=== PATIENT | male | born 2000 | race African-American/Black ===

== ENCOUNTER 2023-09-06 21:37 | Emergency (ER) | payer OTHER, SELFPAY ==
[2023-09-06 21:53] VITALS: BP 152/76; PULSE 100; RESP 15; TEMP 36.6; O2SAT 100
--- NOTE | 2023-09-07 00:23 | ED.GENADULT ---
[facility] - General Adult General Chief complaint: Extremity Problem,Nontraumatic Stated complaint: right ankle pain for years Time Seen by Provider: 09/07/23 00:05 Source: patient Mode of arrival: ambulatory Limitations: no limitations History of Present Illness HPI narrative: This is a 22-year-old male who presents to the ED with chief complaint of 3 years of chronic posterior ankle pain. Reports the pain radiates from the back of the heel up into the posterior ankle. Reports worse with standing and walking otherwise does not give him a lot of pain. Denies skin changes, bruising or any injury. Has taken Tylenol but recently ran out of Tylenol at home. Denies numbness, weakn Related Data Allergies Allergy/AdvReac Type Severity Reaction Status Date / Time No Known Allergies Allergy Unknown Verified 09/06/23 23:00 Review of Systems Review of Systems: All systems as dictated in [facility] Past Medical History Medical History (Updated 09/07/23 @ 00:25 by Scott Rucker PA-C) ADD (attention deficit disorder) Fracture of right upper limb High-functioning autism spectrum disorder Male circumcision Social History Social History (Updated 05/23/19 @ 08:55 by Carmina Webb NP) Smoking status: Never smoker Living arrangements: with family Gender identity (if verbalized by the patient): Male Exam Narrative: GENERAL: Well-appearing, well-nourished, and in no acute distress. MSK: Normal range of motion. No edema. Mild tenderness to the right heel /ankle. No deformity. Compartments soft. Neurovascularly intact distally. SKIN: Warm, dry, no rash. NEURO: Alert and oriented x3. No focal deficits. PSYCH: Normal mood and affect. Course Vital Signs Vital signs: Vital Signs Temperature 97.8 F 09/06/23 21:53 Pulse Rate 100 09/06/23 21:53 Respiratory Rate 15 09/06/23 21:53 Blood Pressure 152/76 H 09/06/23 21:53 Pulse Oximetry 100 09/06/23 21:53 Oxygen Delivery Room Air 09/06/23 21:53 Temperature 97.8 F 09/06/23 21:53 Pulse Rate 88 09/07/23 01:00 Respiratory Rate 14 09/07/23 01:00 Blood Pressure 142/88 H 09/07/23 01:00 Pulse Oximetry 100 09/07/23 01:00 Oxygen Delivery Room Air 09/06/23 21:53 Medical Decision Making MDM Narrative Medical decision making narrative: this is a 22-year-old male who presents to the ED with chief complaint of several years of right ankle pain. Vitals are normal. Exam shows tenderness to the heel and posterior ankle. Presentation is most likely consistent with plantar fasciitis. No indication for imaging or further workup at this time. Pt will be discharged in stable condition. Return precautions given and supportive measures discussed. Pt is understanding and agreeable with plan for discharge and follow-up with PCP. Vital Signs Vital Signs: Vital Signs Temperature 97.8 F 09/06/23 21:53 Pulse Rate 100 09/06/23 21:53 Respiratory Rate 15 09/06/23 21:53 Blood Pressure 152/76 H 09/06/23 21:53 Pulse Oximetry 100 09/06/23 21:53 Oxygen Delivery Room Air 09/06/23 21:53 Temperature 97.8 F 09/06/23 21:53 Pulse Rate 88 09/07/23 01:00 Respiratory Rate 14 09/07/23 01:00 Blood Pressure 142/88 H 09/07/23 01:00 Pulse Oximetry 100 09/07/23 01:00 Oxygen Delivery Room Air 09/06/23 21:53 Discharge Plan Discharge Clinical Impression: Plantar fasciitis Patient Disposition: Home, Self-Care Condition: Stable Instructions: Antibiotic Form Additional Instructions: exam today is overall reassuring. Follow-up with your doctor. Take Tylenol and ibuprofen regularly for pain control. Prescriptions: New acetaminophen [Pain Relief (acetaminophen)] 325 mg tablet 325 mg PO Q6H PRN (Reason: fever or pain) Qty: 30 0RF ibuprofen 600 mg tablet 600 mg PO TID PRN (Reason: fever or pain) Qty: 30 0RF No Action ofloxacin 0.3 % drops 10 drop EACH EAR DAILY 7 Days Qty: 5
[2023-09-07 01:00] VITALS: BP 142/88; PULSE 88; RESP 14; O2SAT 100
== END 2023-09-07 01:01 | disposition home or self-care (01) ==
LOC: ANHED 09-07 00:56
PROVIDERS: Emergency Provider Physician Assistant; PCP Nurse Practitioner Family
DX: M72.2 Plantar fascial fibromatosis (principal); F84.0 Autistic disorder
CPT/HCPCS: 99283